=== PATIENT | male | born 1935 | race Caucasian/White ===

== ENCOUNTER 2017-01-15 11:15 | Day surgery (SDC) | payer MEDICARE ==
[~2017-01-15] VITALS: Ht 175.3 cm; Wt 96.2 kg
[~2017-01-15 11:15] MED LIST: ATRV10T PO; CHOL10008 PO; COU5 PO; DESO15CR TOP; DICL100G20 TOP; DIGO125T PO; DILT360C19 PO; MAGNESIUM DR64 MG PO; METO25TA6 PO; OMEG1CAP56 PO; SERT50TA PO; Sodium Chloride LOK Flush 10 mL Syringe IV PRN; TAMS0.4C98 PO; ZES10 PO; citrucel PO; fentaNYL-PF 50 mCg/mL 2 mL Inj IVPUSH PRN
[2017-01-15 11:37] VITALS: BP 120/80; PULSE 93; RESP 12; O2SAT 97
[2017-01-15] MEDS ORDERED: 0.9% Sodium Chloride 1,000 ML IV ONE ×2 (11:52)
[2017-01-15 12:14] VITALS: BP 101/69; PULSE 86; RESP 15; O2SAT 92
[2017-01-15 12:24] VITALS: BP 98/71; PULSE 81; RESP 16; O2SAT 93
[2017-01-15 12:33] VITALS: BP 109/69; PULSE 85; RESP 16; O2SAT 93
--- NOTE | 2017-01-15 13:29 | ENDO ---
[address] [address] ENDOSCOPY PROCEDURE PATIENT: DAVID KNOWLES : 1935 MR#: [id number] ADMIT: 01/15/2017 JOB ID: [id number] DATE: 01/15/2017 TYPE OF OPERATION: Colonoscopy with biopsy and hot snare polypectomy. PREOPERATIVE DIAGNOSIS(ES): Rectal bleeding. POSTOPERATIVE DIAGNOSIS(ES): 1. Small internal hemorrhoids. 2. A 5 mm cecal polyp removed by hot snare polypectomy status post one hemoclip at post polypectomy site due to small amount of oozing of blood. 3. Followup with good hemostasis. 4. A 3 mm ascending colon polyp removed by cold biopsy forceps. ANESTHESIA: 1. Fentanyl 75 mcg. 2. Versed 4 mg IV administered. COMPLICATION: None. ESTIMATED BLOOD LOSS: Minimal. DESCRIPTION OF PROCEDURE: After the risks and benefits were explained to the patient, informed consent was obtained. After anesthesia administered, a colonoscope was inserted from the rectum to the cecum. Mucosa was carefully examined. Prep of the patient was excellent. After the procedure was done, the scope was withdrawn and procedure terminated. FINDINGS: Upon inspection of the anus, no masses, hemorrhoids, ulcers or fissures that were seen. Throughout the entire examination, there was a 5 mm cecal polyp removed by hot snare polypectomy. There was slight oozing afterwards and a hemoclip was placed for good hemostasis. A 3 mm ascending colon polyp removed by hot snare polypectomy. Retroflexion shows an ascending colon polyp removed by cold biopsy forceps. Retroflexion showed small internal hemorrhoids. IMPRESSION: 1. Small internal hemorrhoids. 2. A 5 mm cecal polyp removed by hot snare polypectomy and one hemoclip placed post polypectomy site with good hemostasis. 3. A 3 mm descending colon polyp, removed by cold biopsy forceps. RECOMMENDATION: 1. Await pathology results. 2. Stool softener as needed. 3. If tubular adenoma, then next colonoscopy in five years.
--- NOTE | 2017-01-18 14:06 | PATH ---
SURGICAL PATHOLOGY Attending Physician:Haider Bernal MD CASE STATUS: Signed Out PATIENT NAME: DAVID KNOWLES PID: [id number] : 1935 DATE COLLECTED:01/15/2017 20:20 SPECIMEN: Colon, Biopsy CLINICAL HISTORY: BLOOD IN STOOL 1). CECAL POLYP FINAL DIAGNOSIS: 1.CECAL POLYP: TUBULAR ADENOMA INVOLVING MULTIPLE BIOPSY FRAGMENTS. ICD10 CODE D12.0 GROSS DESCRIPTION: Received in formalin, labeled with the patient' s name and "cecal polyp", are multiple fragments of chacon, soft tissue ranging in size from 0.1 x 0.1 x 0.1 cm to 0.2 x 0.1 x 0.1 cm. All fragments are totally submitted in one cassette. ([id number]) MICRO DESCRIPTION: See diagnosis. ICD-9 CODES: CPT CODES: 1: 70274 Electronically Signed Out Dayton Zhang MD [facility] [address], [place] [address] Technical component performed at [facility], [facility] [address], [address]
== END 2017-01-15 23:59 | disposition home or self-care (01) ==
LOC: END 11:15
PROVIDERS: ATTEND Internal Medicine Gastroenterology
DX: D12.0 Benign neoplasm of cecum (principal); D12.2 Benign neoplasm of ascending colon; K64.8 Other hemorrhoids; K62.5 Hemorrhage of anus and rectum; I10 Essential (primary) hypertension; I42.9 Cardiomyopathy, unspecified; I48.91 Unspecified atrial fibrillation; R01.1 Cardiac murmur, unspecified; K21.9 Gastro-esophageal reflux disease without esophagitis; N28.9 Disorder of kidney and ureter, unspecified; Z79.01 Long term (current) use of anticoagulants; Z87.442 Personal history of urinary calculi; Z85.46 Personal history of malignant neoplasm of prostate; Z87.891 Personal history of nicotine dependence
CPT/HCPCS: 45380; 45385; 88305; G0500; J7030